=== PATIENT | female | born 1945 | race Caucasian/White ===

== ENCOUNTER 2025-05-31 05:33 | Observation (INO) ==
--- NOTE | 2025-05-01 13:36 | PAT Medication Instructions ---
Medication Instructions Date of Service May 01, 2025 Home Medications alprazolam 0.5 mg tablet (Xanax) 0.25 mg PO BID amlodipine 5 mg tablet 5 mg PO QAM aripiprazole 2 mg tablet (Abilify) 2 mg PO QAM biotin 2,500 mcg capsule 0 mcg PO DAILY bupropion HCl 100 mg tablet 100 mg PO BID cholecalciferol (vitamin D3) 125 mcg (5,000 unit) tablet (Vitamin D3) 125 mcg PO DAILY diphenhydramine 25 mg-acetaminophen 500 mg tablet (Tylenol PM Extra Strength) 1 tab PO HS duloxetine 60 mg capsule,delayed release 60 mg PO HS ferrous sulfate 325 mg (65 mg iron) tablet (Iron (ferrous sulfate)) 325 mg PO QAM furosemide 40 mg tablet 40 mg PO DAILY PRN Edema hydroxychloroquine 200 mg tablet 400 mg PO QAM linaclotide 145 mcg capsule (Linzess) 145 mcg PO QAM mirabegron 25 mg tablet,extended release 24 hr 25 mg PO QAM omeprazole 40 mg capsule,delayed release 40 mg PO QAM phentermine 37.5 mg tablet (Adipex-P) 37.5 mg PO QAM tramadol 50 mg tablet 50 mg PO UD PRN Pain ASK your prescriber and surgeon hydroxychloroquine 200 mg tablet 400 mg PO QAM STOP taking 2 weeks before surgery biotin 2,500 mcg capsule 0 mcg PO DAILY STOP taking 5 days before surgery phentermine 37.5 mg tablet (Adipex-P) 37.5 mg PO QAM DO NOT take the morning of surgery cholecalciferol (vitamin D3) 125 mcg (5,000 unit) tablet (Vitamin D3) 125 mcg PO DAILY ferrous sulfate 325 mg (65 mg iron) tablet (Iron (ferrous sulfate)) 325 mg PO QAM furosemide 40 mg tablet 40 mg PO DAILY PRN Edema linaclotide 145 mcg capsule (Linzess) 145 mcg PO QAM mirabegron 25 mg tablet,extended release 24 hr 25 mg PO QAM Take morning of surgery With a small sip of water, OTHERWISE NOTHING TO EAT OR DRINK AFTER MIDNIGHT: alprazolam 0.5 mg tablet (Xanax) 0.25 mg PO BID amlodipine 5 mg tablet 5 mg PO QAM aripiprazole 2 mg tablet (Abilify) 2 mg PO QAM bupropion HCl 100 mg tablet 100 mg PO BID omeprazole 40 mg capsule,delayed release 40 mg PO QAM tramadol 50 mg tablet 50 mg PO UD PRN Pain (if needed) Take evening before surgery alprazolam 0.5 mg tablet (Xanax) 0.25 mg PO BID bupropion HCl 100 mg tablet 100 mg PO BID diphenhydramine 25 mg-acetaminophen 500 mg tablet (Tylenol PM Extra Strength) 1 tab PO HS duloxetine 60 mg capsule,delayed release 60 mg PO HS furosemide 40 mg tablet 40 mg PO DAILY PRN Edema (if needed) tramadol 50 mg tablet 50 mg PO UD PRN Pain (if needed) Other Notes If you have any questions please call us at [phone] or [phone] or [phone] or [phone]
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
--- NOTE | 2025-05-31 05:25 | History & Physical Bridge Note ---
Date of Service May 31, 2025 History & Physical Bridge Note I have examined the patient, reviewed the History & Physical and in the interval since the performance of the History & Physical I have noted the following changes of clinical significance: consent and site verified.risks of infection,dvt/pe and non-optimal strength improvement identified.no changes noted
[2025-05-31] MEDS: LR 15ML/HR IV SCH ×2 (06:06→06:07)
[2025-05-31] MEDS ORDERED: MIDAZOLAM HCL 1 MG/ML 2ML VIAL ONE (06:47)
[2025-05-31] MEDS ORDERED: ROCURONIUM BROMIDE 10 MG/ML 5 ML VIAL IV ONE (06:49)
[2025-05-31] MEDS: TRANEXAMIC ACID 1,000 MG **IV Pre-op IV SCH (07:05)
[2025-05-31] MEDS ORDERED: PROPOFOL IV EMULSION 10 MG/ML 20 ML VIAL IV ONE (07:27)
[2025-05-31] MEDS ORDERED: DEXAMETHASONE SOD INJ 4 MG/ML VIAL ONE (07:27)
[2025-05-31] MEDS ORDERED: ONDANSETRON INJ 2 MG/ML 2 ML VIAL ONE (07:27)
[2025-05-31] MEDS ORDERED: SUGAMMADEX SODIUM 200 MG/2 ML VIAL IV ONE (07:42)
[2025-05-31] MEDS ORDERED: HYDROmorphone INJ 1 MG/ML SYRINGE IV PRN (08:14)
[2025-05-31] MEDS ORDERED: PROMETHAZINE HCL 6.25 MG in SODIUM CHLORIDE 0.9% 50 ML IV PRN (08:14)
[2025-05-31] MEDS ORDERED: ONDANSETRON INJ 2 MG/ML 2 ML VIAL IV PRN ×2 (08:14→13:03)
[2025-05-31] MEDS ORDERED: FLUMAZENIL 0.1 MG/1 ML 10 ML VIAL IV PRN (08:14)
[2025-05-31] MEDS ORDERED: NALOXONE HCL 0.4 MG/1 ML VIAL/CARP IV PRN ×2 (08:14→13:03)
[2025-05-31] MEDS ORDERED: ATROPINE SULFATE 0.1 MG/ML 10ML SYR IV PRN (08:14)
[2025-05-31] MEDS: TRANEXAMIC ACID / 0.7% NACL 1,000 MG/100 ML BAG IV ONE (08:22)
[2025-05-31] MEDS ORDERED: ePHEDrine sulfate 50 MG/5 ML SYR ONE (08:23)
--- NOTE | 2025-05-31 08:59 | Post Operative Brief Note ---
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 pre and postop diagnosis same I identified the patient and participated in the time-out.: Yes Procedure Operation Date: 05/31/25 07:00 <No data on this case meets the specified criteria> Hip abductor release advancement repair with gluteus dandre transfer and tensor femoris lotta advancement hip abductor trochanter attachment left hip Surgeon Robert Kathleen MD Custom Bookbinder Hola no resident or fellow available Estimated Blood Loss 25 Findings Consistent with Post-Op Diagnosis 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 Fluids See anesthesia report Complications None
--- NOTE | 2025-05-31 09:03 | Operative Report ---
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 Left hip Surgeon Robert Kathleen MD Oil House Attendant Hola no resident or fellow available Estimated Blood Loss 25 Findings Consistent with Post-Op Diagnosis Abductor insufficiency chronic tear of hip abductors intact total hip replacement Fluids See anesthesia report Specimens None Drains None Complications None Indications Severe hip abductor weakness chronic Description of Procedure After the patient was appropriate notified site verified consent verified antibiotics confirmed as being given she was placed in the right lateral decubitus position and the left lower extremity prepped and draped use routine fashion. The old incision was marked and extended slightly proximal and distal about a centimeter half in each direction full-thickness flaps raised there was significant scarring in the proximal half the fascia was then identified was then dissected posteriorly and anteriorly we could find the tensor fascia femoris. Once that was done a release of the gluteus dandre IT band fascia was then carried out leaving the tensor fascia femoris intact detaching it distally about 3 cm distal to the vastus lateralis line and then extending it up through the posterior two thirds of the gluteus dandre this gave a nice transferable tissue to the greater trochanter. This was then doubled on itself to give it a nice tendon thickness at its insertion. The abductor attachment site was essentially nude with some tissue attached anteriorly and posteriorly the hip trochanter was then debrided of any scar tissue and soft tissue all sutures were removed. This gave a nice bleeding bed. Once this was done fiber tack DR an chors x 2 were placed proximally and fiber tack anchors x 2 placed distally. Once these were in place the hip abductor remnants were then advanced with dissection care taken not to go above 2-1/2 cm above the tip of the trochanter. We got three #2 Vicryl sutures and that were able to advance that with traction onto the abductors and slight abduction. Once that was all done the gluteus dandre was transferred into the bed and repaired with with the sutures that were there the sutures were double loaded distally and proximally this allowed excellent repair and gave it a compression into the bed. Sutures that were tie were then used to advance the tensor fascia femoris and the gluteus medius into the trochanter as well. This gave nice coverage of the trochanter in all phases. The hip was then rotated and flexed and everything moved well as a unit. Wound was irrigated multiple times given 1 final irrigation and the parts of the fascia that could be close together were closed and then the subcutaneous layer closed in multiple layers with #2 Vicryl 2-0 Vicryl and the skin closed with stainless steel clips. EBL was less than 25 cc crystalloid per anesthesia DVT PE prophylaxis to initiate tomorrow. She can be weightbearing as tolerated no restriction on range of motion but needs to avoid hard hip abduction for about 6 weeks. I attest to the content of the Intraoperative Record and any orders documented therein. Any exceptions are noted below.
--- NOTE | 2025-05-31 09:05 | Discharge Summary ---
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 Principal Diagnosis Status post gluteus dandre and tensor fascia femoris transfer with primary repair hip abductors Discharge Data Allergies Allergy/AdvReac Type Severity Reaction Status Date / Time lisinopril Allergy Rash Verified 05/31/25 05:55 adhesive AdvReac Skin Verified 05/31/25 05:55 tearing Vaccinations None Consultations None Procedures Performed Operation Date: 05/31/25 07:00 <No data on this case meets the specified criteria> Ordered Studies X-ray Hospital Course (1) Tear of tendon of lower extremity: Case management assessed; rehab candidate based on chronicity of the tear and the need to get her stronger and maintain better balance ; going to an inpatient rehab unit medically indicated Plan Inpatient rehab unit for SNF with rehab. Total Time Total Time Spent Total Time Spent (In Minutes): 10 minutes Discharge Plan Discharge Items Patient Disposition: Transfer Inpatient Rehab Fac Reason For Visit: Left Hip Chronic HIM Abductor Weakness Discharge Diagnosis: Left hip s/p gluteus dandre transfer with TFF advancement Condition on Discharge: Good Activity: Per Instructions section Lifting: Wait until after follow-up appointment Bathing: Keep incision dry Exercise/Sports: Wait until after follow-up appointment Driving/Machine Use: No driving until cleared by Dr. Kathleen Weightbearing: Full weightbearing Non-emergency contact: Surgeon Call non-emergency contact if: you have any medication questions, your pain is not controlled, your temperature is above 101, your wound has increased redness, your wound has increased drainage and your wound pain has increased Follow-up/Referrals: Ethan Simental PA-C [Physician Quarrying Manager] - 06/15/25 PCP,NO [Physician] - Diet: Heart Healthy Add Attending Provider Instructions: New Medicine: * You will likely be taking one or more of these medicines: 1. Percocet - Take, as directed, when you need it, every four to six hours to control your pain. 2. Iron Sulfate - Take 1x each day for the month after surgery to help you replace the blood lost during surgery. 3. Eliquis - Thins your blood to lessen the chance of forming a blood clot. * The most common side effects of pain medicine and iron are nausea and constipation. If nausea or constipation is too much of a problem or if you have any questions about your new medicines or doses, call [facility] at . We will try to help you manage these issues. "VERY IMPORTANT TO READ AND REVIEW" Blood Clots and Blood Thinning Medicine: * You are given Eliquis during the immediate post-operative period to lessen the risk of blood clots forming in your legs and/or lungs. It is usually given for six weeks after surgery. Pain: * The immediate post-operative period after hip replacement surgery is often quite painful. * You are given a prescription for pain medicine. You should take it, as directed, when you need it, especially before physical therapy and before going to bed. Pain that interferes with sleep is very common and can last several months. * You will likely need pain medicine for the first two to four weeks. It will not stop all of the pain. The pain will lessen and as you feel better, you may change to milder pain medicine such as Tylenol. * The most common side effects of pain medicine are nausea and constipation, so don't take more than you need. Physical Therapy: * Follow the "Hip Precautions Instructions." * In some cases, the social psychologist at the hospital will arrange to have a therapist come to your house for the first couple of weeks to help you learn these skills. * You need to practice on your own or with the help of a family member as needed. * When you learn these skills, most of the therapy can be done on your own. Home Exercise: * You were shown a series of exercises in the hospital. Do these exercises three to four times each day including the exercises you were shown in physical therapy. Walking: * Get up and walk several times each day. For the first four weeks, try not to stand or walk for more than one hour at a time. If you do stand or walk for more than one hour, you will not hurt anything, but your leg will likely swell. * As you feel comfortable, you may change from the walker or crutches to a cane and then to independent walking. SELF CARE INSTRUCTIONS AFTER TOTAL HIP REPLACEMENT Until the incision and soft tissues around your hip have healed, there is a possibility that the hip prosthesis could dislocate. A. Observe the following precautions to prevent dislocation: 1. Don't bend your hip greater than 90 degrees. 2. Avoid crossing your legs or ankles while standing or lying. 3. Sit with your feet placed 6 inches apart. 4. When sitting, keep your knees below your hips. Sit on a firm surface, avoid deep, soft chairs and couches. Use an elevated toilet seat in the bathroom. 5. Don't bend over at the waist. Use a long handled shoehorn and a sock aid to help you put on your shoes and socks. A dealer sales manager can help you pick pulling machine tender objects that are too high or too low to reach. 6. Keep car riding to a minimum for at least one month after surgery. B. Your balance may be shaky for a while. Use crutches or a walker until directed by your doctor. C. Use hand rails when walking on stairs. D. Wear low heeled shoes with non-slip soles. E. Be sure that your floors are free of things that could trip you - throw rugs, electrical cords, small objects. Avoid wet and waxed floors, especially with crutches and canes. F. Try to walk several times a day with rest periods between. G. Continue with all the exercises taught to you in the hospital. Again, make walking a part of your daily routine. VERY IMPORTANT TO READ AND REVIEW A. Take Eliquis (blood thinning medication) as directed by your doctor. B. There are a few signs you need to watch for after you are home. If you notice any of the followin. Increased severe hip pain. Some pain is expected especially when you exercise. 2. Increased swelling in your leg or knee; pain or swelling of the calf muscle in either lower leg. 3. Any fluid drainage from the incision. 4. Shortness of breath or chest pain. TEDs/Elastic Stockings: * The white elastic stockings help limit swelling and prevent blood clots from forming in your legs. The more you wear them, the more they work. * Wear them for six weeks. Prevention of Infection: * Take antibiotics one hour before any dental cleaning, dental work, urological procedure, gastrointestinal procedure or any invasive surgery in order to prevent your new joint from getting infected. * You may get the antibiotics from the doctor performing the procedure or we will call in a prescription to the pharmacy of your choice. Call the office for a prescription at least 2 days prior to your appointment. Diet: * You may return to previous diet. Things to Watch For: * Drainage from the incision site that occurs more than one week after your surgery. * Severely increased leg pain or swelling. * Increased redness at the incision site. * Fever above 101 degrees Fahrenheit. * Unusual chest pain or shortness of breath. * Unusual pain or burning with urination. Start your Eliquis tonight with dinner. Take it 2x day x 6 weeks to prevent clots Use your walker for ambulation You can be weightbearing as tolerated on the left leg Perform isometric hip abduction adduction, internal/external rotation, hip flexion, and extension. Hip range of motion is to comfort-maintain total hip precautions. The patient needs significant balance and core strength work. Needs gait training and strengthening for transitioning from a platform walker to crutches to a cane. When she develops enough strength in her hip hopefully she can lose the cane. This will require significant amount of time and retraining. Physical therapy will need to focus on identifying how to create buttock contraction to help with hip abduction to retrain the transfer. Follow up in the office in 2 weeks for staple removal Pending Studies at Discharge: No Skilled Items Patient informed of condition?: Yes DNR: No Discharge Level of Care: Acute rehab Discharge Prognosis: Stable Lines: None Urinary Catheter: No Medications and DC Order Prescriptions: New Eliquis 2.5 mg tablet 2.5 mg PO BID Qty: 80 0RF oxycodone-acetaminophen [Percocet] 5-325 mg tablet 2 tab PO Q6H PRN (Reason: pain) Qty: 20 0RF Rx Instructions: initial script No Action furosemide 40 mg Tablet 40 mg PO DAILY PRN (Reason: Edema) phentermine [Adipex-P] 37.5 mg Tablet 37.5 mg PO QAM Rx Instructions: must administer 30 minutes before or 1-2 hours after breakfast amlodipine 5 mg Tablet 5 mg PO QAM omeprazole [Prilosec] 40 mg Capsule,Delayed Release(Dr/Ec) 40 mg PO QAM tramadol 50 mg Tablet 50 mg PO UD PRN (Reason: Pain) bupropion HCl [Wellbutrin] 100 mg Tablet 100 mg PO BID alprazolam [Xanax] 0.5 mg Tablet 0.25 mg PO BID Patient Comments: 0.5mg ordered TID ferrous sulfate [Iron (ferrous sulfate)] 325 mg (65 mg iron) Tablet 325 mg PO QAM hydroxychloroquine 200 mg Tablet 400 mg PO QAM diphenhydramine-acetaminophen [Tylenol PM Extra Strength] 25-500 mg Tablet 1 tab PO HS duloxetine [Cymbalta] 60 mg Capsule,Delayed Release(Dr/Ec) 60 mg PO HS aripiprazole [Abilify] 2 mg Tablet 2 mg PO QAM biotin 2,500 mcg Capsule 0 mcg PO DAILY cholecalciferol (vitamin D3) [Vitamin D3] 125 mcg (5,000 unit) Tablet 125 mcg PO DAILY mirabegron [Myrbetriq] 25 mg Tablet Extended Release 24 Hr 25 mg PO QAM Linzess 145 mcg Capsule 145 mcg PO QAM Discharge Orders: Discharge Order (Routine); Ordered 06/01/25 Ordered By: Robert Kathleen Admission Data Admit Date/Time: 05/31/25 09:14 Attending Provider: Robert Kathleen Admit Provider: Robert Kathleen Primary Care Provider: Idris Bai
--- NOTE | 2025-05-31 09:07 | Orthopedic Progress Note ---
Date of Service May 31, 2025 Orthopedic Progress Note Status post hip abductor repair gluteus dandre and tensor fascia femoris transfer. Tolerated procedure well. Attempted to contact family son Ganesh at [phone] area code [phone] was unsuccessful left a voicemail. X-ray pending.
--- NOTE | 2025-05-31 09:16 | Operative Report ---
Post Operative Report Pre & Post Diagnosis Operation Date: 05/31/25 07:00 Pre-Op Diagnosis: Left Hip Chronic Abductor Weakness Post-Op Diagnosis: Left Hip Chronic Abductor Weakness I identified the patient and participated in the time-out.: Yes Procedure Operation Date: 05/31/25 07:00 Actual Procedures p Left Hip Primary Repair of Ruptured Abductor Gluteus Willy with Tensor Fascia Transfer(Left) - Robert Kathleen MD Surgeon SILVER Kathleen MD Social Services Specialist [facility] PAC no resident or fellow available Estimated Blood Loss 25 Findings Consistent with Post-Op Diagnosis see operative report Specimens none Drains none Complications none Disposition Accompanied Patient To Recovery: Yes Indications This 79 year old female presented to the office with complaints of persisting left hip pain and weakness after previous total hip arthroplasty. She had tried conservative care measures without improvement. She elected to proceed with surgical intervention after being educated about potential risks and outcomes. Preoperative imaging was obtained. Description of Procedure The patient was administered a regional block and then taken to the operating room where she was given general anesthesia. She was prepped and draped in the usual sterile fashion. Please see Dr. Kathleen's operative report for specifics of the procedure. I was present for the entire case from initial patient positioning through final wound closure. Assistance was provided in tissue retraction, hemostasis, hardware placement, and final wound closure. The patient was taken to the recovery room in satisfactory condition. I attest to the content of the Intraoperative Record and any orders documented therein. Any exceptions are noted below.
--- NOTE | 2025-05-31 09:29 | XRay Report ---
XR pelvis 1-2V routine CLINICAL HISTORY: s/p left abductor repair and GM transfer COMPARISON: 10/03/2024 FINDINGS: Left hip prosthesis shows no hardware complication. There is expected postoperative soft t issue gas lateral to the left hip with overlying skin minda. There are mild degenerative changes at the right hip. No fracture or dislocation seen. IMPRESSION: Unremarkable postoperative x-ray. ACT 112: Negative or not required by law. Electronically signed by: Hemanth Nicole M.D. 05/31/2025 9:27 AM
--- NOTE | 2025-05-31 09:45 | Anesthesiology Progress Note ---
Date of Service May 31, 2025 Anesthesia Post Procedure Vital Signs Vital Signs: Temp Pulse Pulse Resp BP Pulse Ox O2 Del Method 05/31/25 09:40 36.4 C L 64 18 123/63 98 Nasal Cannula 05/31/25 09:30 65 20 150/68 H 98 Nasal Cannula 05/31/25 09:20 62 14 123/66 95 Oxymask 05/31/25 09:10 66 16 116/88 98 Oxymask 05/31/25 09:00 36.1 C L 60 14 135/60 96 Oxymask 05/31/25 06:02 36.7 C 64 18 161/66 H 99 Room Air O2 Flow Rate 05/31/25 09:40 2 05/31/25 09:30 2 05/31/25 09:20 2 05/31/25 09:10 3 05/31/25 09:00 6 05/31/25 06:02 Transfer of Care Handoff Completed per policy Notes Mental Status: alert / awake / arousable Patient Amnestic to Procedure: Yes Nausea / Vomiting: adequately controlled Pain: adequately controlled Airway Patency, RR, SpO2: stable & adequate BP & HR: stable & adequate Hydration State: stable & adequate Anesthetic Complications: no major complications apparent
--- NOTE | 2025-05-31 11:41 | Orthopedic Progress Note ---
Date of Service May 31, 2025 Orthopedic Progress Note Postop check status post gluteus dandre and tensor fascia femoris transfer with partial repair of hip abductors left hip status post remote hip replacement. At this point in time she is doing well denies chest pain shortness of breath fever chills nausea vomiting headache. Vital signs are stable she is afebrile. Neurovascular check femoral sciatic nerve is intact. Postop x-ray looks unchanged hip is located. Assessment overall doing well plan is to discharge to rehab in the morning she will require several weeks of the balance work hip retraining and avoidance of high resistance to her hip abductors until things heal at the 6 weeks or beyond. This was described to her in detail. She states she understands.
[2025-05-31] MEDS ORDERED: FUROSEMIDE 40 MG TAB PO PRN (13:03)
[2025-05-31] MEDS ORDERED: VANCOMYCIN CONSULT ACTIVE PRN (13:03)
[2025-05-31] MEDS ORDERED: HYDROmorphone INJ 0.5 MG/0.5 ML SYR IV PRN (13:03)
[2025-05-31] MEDS ORDERED: MAGNESIUM HYDROXIDE SUSP 30 ML UDC PO PRN (13:03)
[2025-05-31] MEDS ORDERED: ALUMINUM/MAGNESIUM SUSP 30 ML UDC PO PRN (13:03)
[2025-05-31] MEDS ORDERED: METOCLOPRAMIDE HCL INJ 5 MG/ML 2 ML VIAL IV PRN (13:03)
[2025-05-31] MEDS ORDERED: diphenhydrAMINE 50 MG/ML VIAL IV PRN (13:03)
[2025-05-31] MEDS: ACETAMINOPHEN 500 MG TAB PO SCH (14:13)
[2025-05-31] MEDS: KETOROLAC TROMETHAMINE 15 MG/ML VIAL IV SCH (14:14)
[2025-05-31] MEDS: VANCOMYCIN HCL 1,500 MG in SODIUM CHLORIDE 0.9% 500 ML IV ONE (14:14)
[2025-05-31] MEDS: SODIUM CHLORIDE 0.9% 1,000 ML IV SCH (14:15)
[2025-05-31] MEDS ORDERED: FERROUS GLUCONATE 324 MG TAB PO SCH (17:00)
[2025-05-31] MEDS: ASCORBIC ACID 500 MG TAB PO SCH (17:20)
[2025-05-31] MEDS: DOCUSATE SODIUM 100 MG CAP PO SCH (21:48)
[2025-05-31] MEDS: SENNA 8.6 MG TAB PO SCH (21:48)
[2025-06-01 06:10] LABS: Hematocrit (blood only) 33.0 % (37.0-47.0); Hemoglobin 10.7 g/dl (12.0-16.0); Immature Granulocytes # (auto) 0.02 K/uL (0.01-0.20); Immature Granulocytes % (auto) 0.3 %; Mean Corpuscular Hemoglobin 29.7 pg (25.0-34.0); Mean Corpuscular Volume 91.7 fL (80.0-100.0); Platelet Count 173 K/uL (130-400); RDW Standard Deviation 48.0 fL (36.4-46.3); Red Blood Count 3.60 M/uL (4.20-5.40); White Blood Count 5.92 K/ul (4.8-10.8)
[2025-06-01 06:28] LABS: Anion Gap 4.0 (3-11); Blood Urea Nitrogen 16.0 mg/dl (6-23); Calcium 8.8 mg/dl (8.6-10.3); Carbon Dioxide 30.0 mmol/L (21-32); Chloride 107.0 mmol/L (98-107); Creatinine Clr Calc Pharmacy 56.5 ml/min; Glucose 117.0 mg/dl (70-99(Fasting)); Potassium 4.1 mmol/L (3.5-5.1); Sodium 141.0 mmol/L (136-145)
--- NOTE | 2025-06-01 06:39 | Orthopedic Progress Note ---
Date of Service June 01, 2025 Assessment & Plan Admission and Anticipated Discharge Date Admission Date: May 31, 2025 Orthopedic Progress Note Postop day #1 status post gluteus dandre tensor fascia femoris transfer with partial repair of hip abductors of the left hip. She is doing well she has no real discomfort. She denies chest pain shortness of breath fever chills nausea vomiting headache. She does feel like she has a little bit of a nasal congestion which is likely from the general anesthetic but is requesting some Zyrtec. Vital signs are stable she is afebrile. Neurovascular check femoral sciatic nerve is normal. Wound dressing clean dry and intact. Can do a straight leg raise can do heel slide 60 to 70 degrees hip flexion with no pain. Hematocrit stable 33 range. Assessment overall doing well plan is to do transfer [facility] to develop balance strength hip isometric program to minimize fall risk and to protect transfers while they heal. She is a high fall risk and has done this many times in inpatient assessment and treatment is medically indicated. Dressing change to be performed by PA before discharge. Please see yesterday's note for PT recommendations that while she is at inpatient rehab. Please incorporate those into the discharge plan.
[2025-06-01 07:47] VITALS: PULSE 63; RESP 14; O2SAT 96
[2025-06-01 07:50] VITALS: TEMP 98.1
[2025-06-01] MEDS: LINACLOTIDE 145 MCG CAPSULE PO SCH (08:12)
[2025-06-01] MEDS: VIBEGRON 75 MG TAB PO SCH (08:12)
[2025-06-01] MEDS: HYDROXYCHLOROQUINE SULFATE 200 MG TAB PO SCH (08:12)
[2025-06-01] MEDS: FERROUS SULFATE 325 MG TAB PO SCH (08:13)
[2025-06-01] MEDS: MULTIVITAMIN TAB PO SCH (08:13)
[2025-06-01] MEDS: APIXABAN 2.5 MG TAB PO SCH (08:13)
--- NOTE | 2025-06-01 09:21 | Orthopedic Progress Note ---
Date of Service June 01, 2025 Assessment & Plan (1) Tear of tendon of lower extremity: Plan: POD1 status post gluteus dandre tensor fascia femoris transfer with partial repair of hip abductors of the left hip WBAT with walker PT/OT Frequently ice Eliquis for dvt prophylaxis Percocet as needed for pain control Dressing: changed today with guaz, abd and medipore tape Discharge to rehab Slightly hypotensive this morning, amlodipine was held, pt asymptomatic Follow up as scheduled with [facility] in 2 weeks Admission and Anticipated Discharge Date Admission Date: May 31, 2025 Subjective Pt was seen and examined bedside. POD #1 status post gluteus dandre tensor fascia femoris transfer with partial repair of hip abductors of the left hip. Pt was admitted last night for observation. No major events over night. Vitals are stable, she was slightly hypotensive but not symptomatic. Labs unremarkable. Pt reports they are doing well and pain is controlled. They are tolerating PO intake and voiding adequate amounts. Has not yet seen PT/OT. Pt denies F/C, N/V/D, SOB, CP. Pt deemed medically stable and ready for discharge to rehab pending PT eval. Physical Exam Physical Exam: General: Pt laying in hospital bed AA&O, in NAD, calm and cooperative during exam Lower Extremity: Dressing in tact and not saturated. Dressing changed today.Incisions clean, dry and with minimal drainage and no surrounding erythema , warmth or purulent drainage. Pt has full ROM of ankle and all 5 digits. Pt has 5/5 strength with resisted DF/PF. SLR in tact. Calf supple and non tender. NVI with sensation to light touch distally and good distal pulses present. Flexion to about 90 degrees. She is able to tolerate flexion of her hip to 90 degrees and gentle passive abduction, adduction and internal and external rotation with no significant pain. Results & Data Vital Signs (Past 12 Hours) Vital Signs Temp Pulse Resp BP Pulse Ox O2 Del Method 06/01/25 07:49 36.7 C 63 14 97/57 L 96 Room Air 06/01/25 07:45 63 14 97/57 L 96 Room Air 06/01/25 03:14 36.5 C 68 18 113/62 95 Room Air 05/31/25 23:42 36.5 C 68 18 107/59 L 94 Room Air
[2025-06-01] MEDS: dexAMETHasone 10 MG in SYRINGE 0 ML IV SCH (09:43)
[2025-06-01 12:13] VITALS: BP 152/77
== END 2025-06-01 14:40 ==
LOC: ASU 05:33 → 3E 05:33